=== PATIENT | male | born 1970 | race Caucasian/White ===

== ENCOUNTER 2016-12-28 12:05 | Outpatient (CLI) | payer BC | END 2016-12-28 20:02 | disposition home or self-care (01) | LOC: SRD 12:05 | PROVIDERS: ATTEND Internal Medicine | DX: M77.31 Calcaneal spur, right foot (principal) ==

== ENCOUNTER 2022-05-01 14:50 | Emergency (ER) | payer BC, MEDICAID ==
[~2022-05-01] VITALS: Ht 182.9 cm; Wt 117.5 kg
[2022-05-01 15:11] VITALS: BP_SYST 136
--- NOTE | 2022-05-01 15:17 | NUR ---
Patient to ER bed Tent 01 for evaluation. Side rails up.
--- NOTE | 2022-05-01 15:18 | NUR ---
ER Dr. Vargas at bedside examining patient.
--- NOTE | 2022-05-01 15:22 | NUR ---
Assumed care of pt who came from home c/o flu like symptoms x3 days. Pt states he took a COVID test at home and the result was positive. He called his PMD who told him to go to the ED for evaluation "just to be safe". Denies SOB, n/v/d, fever. Pt is A&Ox4, calm and cooperative. Will continue to provide care as ordered.
[2022-05-01 15:41] VITALS: BP_SYST 136
--- NOTE | 2022-05-01 15:48 | NUR ---
Patient given written and verbal discharge instructions and verbalizes understanding. ER MD discussed with patient the results and treatment provided. Patient in stable condition. ID arm band removed. IV catheter removed intact and dressing applied, no active bleeding. Rx of Paxlovid given. Patient educated on pain management and to follow up with PMD. Pain Scale 0/10. Opportunity for questions provided and answered. Medication side effect fact sheet provided.
== END 2022-05-01 15:42 | disposition home or self-care (01) ==
LOC: SED 14:50
DX: U07.1 COVID-19 (principal); J02.9 Acute pharyngitis, unspecified; R05.9 Cough, unspecified; E11.9 Type 2 diabetes mellitus without complications; E78.5 Hyperlipidemia, unspecified; I10 Essential (primary) hypertension; Z79.899 Other long term (current) drug therapy
CPT/HCPCS: 99283